=== PATIENT | female | born 1995 | race Caucasian/White ===

== ENCOUNTER 2024-03-09 15:37 | Outpatient (AMB) | payer OTHER, SELFPAY ==
--- NOTE | 2024-03-09 15:34 | MHC.OFFWIV ---
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 She states she was seen at a walk-in clinic on Thursday and was diagnosed with strep throat. She states she was given penicilllin but she states she got a rash and heavy chest pressure so she stopped the antibiotic. she would like another antibiotic prescribed. Allergies Penicillins Allergy (Intermediate, Verified 03/09/24 16:01) Rash,chest pressure HPI HPI Comments History of Present Illness Details 29 y/o female patient who presents to walk in clinic with c/o Sore-throat. Pt was seen and evaluated at an in [place] on Thursday. She tested positive for Strep and was given PCN. She had a reaction after 24 hours of taking medication (rash and chest tightness). Pt here asking for a different abx. [facility] Social History (Updated 03/09/24 @ 15:47 by Martha James [facility]) Alcohol intake: current Alcohol intake frequency: a few times a month Patient Tobacco Use Status: Never used Tobacco Review of Systems Const All systems reviewed & are unremarkable except as noted in HPI and below Physical Exam Vital Signs: Last Vital Signs Temp 97.6 F 03/09/24 15:45 Pulse 90 03/09/24 15:45 BP 126/82 03/09/24 15:45 Pulse Ox 99 03/09/24 15:45 Oxygen Delivery Method Room Air 03/09/24 15:45 BMI result Body Mass Index 26.4 Const General: comfortable and no acute distress Orientation/consciousness: patient oriented x3 HEENT Ears: external ears normal and TM's normal bilaterally General nose exam: Normal nasal mucous membranes and turbinates present Face and sinus: Yes sinuses nontender Mouth: moist mucous membranes Throat: Yes posterior oropharynx normal Resp Effort & Inspection: normal respiratory effort and able to speak in complete sentences Auscultation: clear to auscultation bilaterally, no crackles, no rales, no rhonchi and no wheezes Cardio Rate: regular rate Rhythm: regular rhythm Neuro General: patient oriented x3 Results AMB Rapid Strep AMB Rapid Strep Negative Last Edit by Martha James CMA on 03/09/24 15:57 Results Reviewed Results Reviewed: Laboratory Last Values Strep Scn Rapid Clinic Negative 03/09/24 15:57 Assessment & Plan Assessment & Plan (1) Acute streptococcal pharyngitis: Code(s): J02.0 - Streptococcal pharyngitis Plan: - Sent Rx for Clarithromycin x 10 days. - Take medicine as prescribed. - Acetaminophen for pain relief. Orders: Orders AMB Rapid Strep Screen Today Z13.9 - Encounter for screening, unspecified Medications: New clarithromycin 250 mg PO BID 10 days 20 tabs 0RF J02.0 - Streptococcal pharyngitis Coding Level of Care Code Est Pt Level 3 (54231) Diagnoses Acute streptococcal pharyngitis J02.0 Time Spent (min) 15
[2024-03-09 15:45] VITALS: BP 126/82; PULSE 90; TEMP 36.4; O2SAT 99; BMI 26.4
== END 2024-03-09 16:04 | disposition home or self-care (01) ==
PROVIDERS: Visit Provider Nurse Practitioner Family
DX: J02.0 Streptococcal pharyngitis (principal)
CPT/HCPCS: 87880; 99213